=== PATIENT | male | born 1970 | race Caucasian/White ===

== ENCOUNTER → 2017-01-04 | Emergency (ER) | payer SELFPAY ==
[~2017-01-04] MED LIST: AMOX1TAB64 PO; ERTA1VIA IV; FOLI-17 PO; HYDR-3138 PO; OXYC1TAB7 PO; POLY17PO5 PO; SENN1TAB7 PO; THIA100T6 PO; none per pt
== END ==
LOC: ED 23:01
DX: S62.522B Displaced fracture of distal phalanx of left thumb, initial encounter for open fracture (principal); X58.XXXA Exposure to other specified factors, initial encounter; Y93.89 Activity, other specified; Y99.8 Other external cause status; Y92.009 Unspecified place in unspecified non-institutional (private) residence as the place of occurrence of the external cause